=== PATIENT | male | born 1960 | race Caucasian/White ===

== ENCOUNTER 2018-05-15 09:24 | Day surgery (SDC) | payer OTHER ==
[2018-05-15] VITALS (8 sets, daily range): BP systolic 83–118; BP diastolic 59–73; PULSE 51–78; TEMP 97.9–98
[~2018-05-15] VITALS: Ht 167.6 cm; Wt 62.0 kg
[2018-05-15] MEDS ORDERED: SUDAFED 12 HOU120 MG PO (09:46)
[2018-05-15] MEDS ORDERED: ADVIL200 MG PO (09:46)
[2018-05-15] MEDS ORDERED: MULTI VITAMINS1 TAB PO (09:47)
[2018-05-15] MEDS ORDERED: NORCO 325 MG-51 TAB PO (13:58)
== END 2018-05-15 15:25 | disposition home or self-care (01) ==
LOC: SDCO 09:24
DX: K40.20 Bilateral inguinal hernia, without obstruction or gangrene, not specified as recurrent (principal); Z80.42 Family history of malignant neoplasm of prostate; Z80.3 Family history of malignant neoplasm of breast; Z88.0 Allergy status to penicillin; Z87.891 Personal history of nicotine dependence
CPT/HCPCS: C1781; J0690; J1100; J1885; J2175; J2270; J2405; J2704; J2710; J3010; J7120